=== PATIENT | male | born 2005 | race Caucasian/White ===

== ENCOUNTER 2024-05-01 13:22 | Outpatient (CLI) | payer BC, SELFPAY ==
[2024-05-01 11:37] LABS: Abs Immature Grans 0.15 10^3/uL (0.0-0.06); Absolute Basophil Count 0.04 10^3/uL (0.0-0.2); Absolute Eosinophil Count 0.42 10^3/uL (0.0-0.7); Absolute Lymphocyte Count 1.66 10^3/uL (1.2-3.4); Absolute Monocyte Count 0.61 10^3/uL (0.1-0.8); Basophils % 0.5 %; HCT 37.3 % (40.0-50.0); Immature Grans % 1.8 %; Lymphocytes % 19.8 %; MCH 30.1 pg (27.0-33.0); MCHC 34.9 % (32.0-36.0); MCV 86 fL (80-95); MPV 8.6 fL (8.0-11.0); Monocytes % 7.3 %; Neutrophils % 65.6 %; Platelet Count 232 10^3/uL (130-400); RBC 4.32 10^6/uL (4.36-5.78); RDW-SD 41.4 fL; WBC 8.38 10^3/uL (4.4-10.8)
[2024-05-01 12:38] LABS: ALT 66 U/L (16-63); AST 28 U/L (15-37); Albumin 4.1 g/dL (3.4-5.0); Alkaline Phosphatase 55 U/L (46-116); BUN 6 mg/dL (7-18); Bilirubin, Total 0.8 mg/dL (0.2-1.0); CREATININE 0.9 mg/dL (0.70-1.30); Calcium 9.5 mg/dL (8.5-10.1); Chloride 107 mmol/L (98-107); Estimated GFR 126.17 (mL/min/1.73m2); Glucose 91 mg/dL (74-106); Magnesium 2.2 mg/dL; PHOSPHORUS 3.2 mg/dL (2.6-4.7); Potassium 3.7 mmol/L (3.5-5.1); Sodium 145 mmol/L (136-145); TSH (W/Ref FT4) 1.31 uIU/mL (0.52-4.13); Total Protein 7.2 g/dL (6.4-8.2)
[2024-05-01 13:11] LABS: Ferritin 220 ng/mL (26-388); Vitamin D 25 Total 19 ng/mL (30-100)
[2024-05-04 15:39] LABS: IgA 221 mg/dL (85-499); Interpretation (See Note); Tissue Transglutaminase IgA <4.0 CU (<20.0)
== END 2024-05-01 13:23 | disposition home or self-care (01) ==
LOC: LBO 13:23
PROVIDERS: PCP Pediatrics; Visit Provider Pediatrics
DX: R63.4 Abnormal weight loss (principal)
CPT/HCPCS: 36415; 80053; 82306; 82784; 83516; 82728; 83735; 84100; 84443; 85025